=== PATIENT | female | born 1980 | race Caucasian/White ===

== ENCOUNTER 2023-08-01 12:42 | Emergency (ER) | payer BC ==
[2023-08-01 12:54] VITALS: BP 156/78; PULSE 91
[2023-08-01] MEDS ORDERED: Ondansetron 4 MG Tab.DIS PO ONE (13:28)
[2023-08-01 13:31] LABS: BASOPHILS ABSOLUTE AUTO 0.02 K/uL (0.00-0.20); BASOPHILS PERCENT AUTO 0.3 % (0.0-2.0); EOSINOPHILS ABSOLUTE AUTO 0.16 K/uL (0.00-0.50); EOSINOPHILS PERCENT AUTO 2.2 % (0.0-5.0); HEMATOCRIT 38.7 % (34.0-46.0); HEMOGLOBIN 12.9 g/dL (11.7-15.5); LYMPHOCYTES ABSOLUTE AUTO 2.44 K/uL (0.50-3.50); LYMPHOCYTES PERCENT AUTO 33.9 % (10.0-50.0); MEAN CORPUSCULAR HEMOGLOBIN 28.4 pg (28.2-33.3); MEAN CORPUSCULAR HGB CONC 33.3 g/dL (31.7-36.0); MEAN CORPUSCULAR VOLUME 85.2 fL (84.0-98.0); MONOCYTES ABSOLUTE AUTO 0.85 K/uL (0.00-1.00); MONOCYTES PERCENT AUTO 11.8 % (2.0-14.0); NEUTROPHILS ABSOLUTE AUTO 3.72 K/uL (1.40-7.00); NEUTROPHILS PERCENT AUTO 51.8 % (45.0-80.0); PLATELET COUNT,PLT 336 K/uL (150-350); RED BLOOD CELL COUNT 4.54 M/uL (3.77-5.09); RED CELL DISTRIBUTION WIDTH 13.1 % (11.2-14.1); WHITE BLOOD CELL COUNT,WBC 7.2 K/uL (4.0-10.2)
[2023-08-01 13:46] LABS: PROTHROMBIN TIME 9.7 SEC (9.0-11.1)
[2023-08-01 13:49] LABS: ALANINE AMINOTRANSFERASE,ALT 23 U/L (12-78); ALBUMIN 3.5 g/dL (3.4-5.0); ALKALINE PHOSPHATASE 67 IU/L (46-116); ASPARTATE AMNIOTRANSFERASE,AST 19 U/L (15-37); BILIRUBIN TOTAL 0.3 mg/dL (0.2-1.0); BLOOD UREA NITROGEN,BUN 12 mg/dL (7-18); CALCIUM 8.7 mg/dL (8.5-10.1); CHLORIDE,CL 103 mmol/L (98-107); CREATININE 0.84 mg/dL (0.51-1.17); ESTIMATED GFR 89 mL/min (>=60); GLUCOSE RANDOM 160 mg/dL (70-99); POTASSIUM,K 3.7 mmol/L (3.5-5.1); PROTEIN TOTAL,TP 6.9 g/dL (6.4-8.2); SODIUM,NA 138 mmol/L (136-145)
== END 2023-08-01 15:00 | disposition home or self-care (01) ==
LOC: LL.ED 12:42
DX: E10.65 Type 1 diabetes mellitus with hyperglycemia (principal); F41.9 Anxiety disorder, unspecified; Z88.0 Allergy status to penicillin; Z88.1 Allergy status to other antibiotic agents
CPT/HCPCS: 36415; 80053; 85025; 85610; 99284; A9270-GY

== ENCOUNTER 2023-08-15 10:31 | Day surgery (SDC) | payer BC ==
[~2023-08-15 10:31] MED LIST: Midazolam 1 MG/ML 2 ML SDV ONE; Propofol 200 MG/20 ML SDV ONE
[2023-08-15] MEDS ORDERED: Lactated Ringers 1,000 ML IV SCH (10:45)
[2023-08-15] MEDS ORDERED: Sodium Chloride 0.9% 10 ML Syringe FLUSH PRN (10:45)
[2023-08-15 10:58] VITALS: BP 137/85; PULSE 77
[2023-08-15] MEDS ORDERED: Midazolam 1 MG/ML 2 ML SDV ONE (12:30)
[2023-08-15] MEDS ORDERED: Glycopyrrolate 0.2 MG/ML SDV IVPUSH ONE (12:30)
[2023-08-15] MEDS ORDERED: Lidocaine 2% 5 ML SDV ONE (12:30)
[2023-08-15] MEDS ORDERED: Propofol 200 MG/20 ML SDV ONE (13:33)
== END 2023-08-15 14:30 | disposition home or self-care (01) ==
LOC: LL.SDS 10:31
PROVIDERS: ATTEND Surgery
DX: K29.50 Unspecified chronic gastritis without bleeding (principal); K31.89 Other diseases of stomach and duodenum; K21.00 Gastro-esophageal reflux disease with esophagitis, without bleeding; R10.30 Lower abdominal pain, unspecified; E10.65 Type 1 diabetes mellitus with hyperglycemia; G43.909 Migraine, unspecified, not intractable, without status migrainosus; Z79.899 Other long term (current) drug therapy; Z79.4 Long term (current) use of insulin; Z79.82 Long term (current) use of aspirin; Z88.0 Allergy status to penicillin; Z88.1 Allergy status to other antibiotic agents; Z88.8 Allergy status to other drugs, medicaments and biological substances
CPT/HCPCS: 00813; J2250; J2704; J3490; J7120